=== PATIENT | female | born 1980 | race Caucasian/White ===

== ENCOUNTER 2023-11-29 08:59 | Day surgery (SDC) | payer OTHER, SELFPAY ==
--- NOTE | 2023-11-29 09:34 | PM.HP.1 ---
History of Present Illness History of Present Illness Date Patient Seen: 11/29/23 Chief complaint: Colonoscopy Narrative: Screening colonoscopy for colon cancer. In addition EGD for evaluation of GE reflux. [facility] Medical History (Updated 11/29/23 @ 09:33 by Lisa Staples, RN) DM (diabetes mellitus), type 2 GERD (gastroesophageal reflux disease) Surgical History (Updated 11/29/23 @ 09:33 by Lisa Staples RN) Delivery by section History of appendectomy Meds Home Medications and Allergies Home Medications Medication Instructions Recorded Confirmed Type ppspigp-xpnxmdfjvkcbs-ikahrvxw 250 1 tab PO ##0 08/27/16 History mg-250 mg-65 mg tablet (Excedrin Migraine) esomeprazole magnesium 20 mg 20 mg PO ##0 08/27/16 History capsule,delayed release (Nexium) ibuprofen 600 mg tablet ##0 08/27/16 History dulaglutide 0.75 mg/0.5 mL 0.75 mg SUBCUT WEEKLY 11/29/23 11/29/23 History subcutaneous pen injector (Trulicity) Allergies Allergy/AdvReac Type Severity Reaction Status Date / Time Sulfa (Sulfonamide Allergy Intermediate Unverified 08/30/17 12:43 Antibiotics) [SULFA (SULFONAMIDE ANTIBIOTICS)] Exam Narrative Exam Narrative: Oropharynx free of lesions Chest clear to auscultation percussion Cardiac exam reveals no S3 or murmur Assessment & Plan Assessment & Plan narrative: Need for colonoscopy for colon cancer screening and EGD for significant GE reflux. Risks, benefits, and alternatives have been explained Time-Based Coding :: [TOTAL MINUTES] spent with patient and on the chart (including review of chart, obtaining history, exam, reviewing outside data, placing orders, documenting exam and treatment plan, and counseling patient) on [DATE].
--- NOTE | 2023-11-29 09:36 | PM.OP.EC ---
Operative Date/Time/Diagnoses Date of procedure: 11/29/23 Pre-op diagnosis: See indication and findings Procedure & Clinicians Study performed: EGD and colonoscopy Indications: Colon cancer screening and evaluation of GE reflux Surgeon: Sidney Jaffe Procedure Notes Procedure in detail: After informed consent was obtained the patient was placed in left lateral decubitus position. The video upper scope was introduced the into the oropharynx and with the patient's help swallowed into the esophagus. The esophagus stomach and duodenum were carefully examined. On withdrawal, retroflexed view the GE junction was performed. The scope was removed. The patient tolerated procedure well. The patient was then turned and the colonoscope substituted. This was introduced in the rectum slowly advanced to the cecum. Preparation was good. On slow withdrawal mucosa was carefully examined. The scope was removed. The patient tolerated procedure well. Blood loss none Complications none Sedation mac Findings EGD 1. Normal esophagus though with a wide open GE junction particularly seen on retroflexed view 2. Normal stomach 3. Normal duodenal bulb and sweep Colonoscopy 1. Normal colonoscopy to cecum Patient will need follow-up colonoscopy in 10 years.
[2023-11-29 09:52] VITALS: BP 153/103; PULSE 81; RESP 18; TEMP 36.4; O2SAT 94
[2023-11-29] MEDS: LACTATED RINGERS 1,000 ML 42 ML IV (09:56)
[2023-11-29 10:40] VITALS: BP 123/75; PULSE 81; RESP 22; TEMP 37.2; O2SAT 94
[2023-11-29 10:45] VITALS: BP 114/75; PULSE 77; RESP 20; TEMP 37.1; O2SAT 95
[2023-11-29 10:50] VITALS: BP 122/82; PULSE 80; RESP 20; TEMP 37.1; O2SAT 95
[2023-11-29 10:55] VITALS: BP 121/67; PULSE 77; RESP 20; TEMP 37.1; O2SAT 96
== END 2023-11-29 11:03 | disposition home or self-care (01) ==
PROVIDERS: Referring Provider Internal Medicine Gastroenterology; Visit Provider Internal Medicine Gastroenterology
PROC: 0DJ08ZZ Inspection of Upper Intestinal Tract, Via Natural or Artificial Opening Endoscopic (ICD-10-PCS; CPT 43235; principal; 2023-11-29 10:00)
PROC: 0DJD8ZZ Inspection of Lower Intestinal Tract, Via Natural or Artificial Opening Endoscopic (ICD-10-PCS; CPT 45378; 2023-11-29 10:00)
DX: Z12.11 Encounter for screening for malignant neoplasm of colon (principal); K21.9 Gastro-esophageal reflux disease without esophagitis
CPT/HCPCS: 45378; 43235; J2704

== ENCOUNTER 2023-12-20 10:51 | Day surgery (SDC) | payer OTHER, SELFPAY ==
[2023-12-14 15:10] VITALS: BMI 45.8
[2023-12-20] VITALS (7 sets, daily range): BP systolic 142–157; BP diastolic 87–96; PULSE 61–75; RESP 12–20; TEMP 36.4–37.1; O2SAT 95–98; BMI 44.4
--- NOTE | 2023-12-20 | PATH_ITS ---
[facility] Accession Number: [id number] No. of containers..01 Tissue . 01 Material submitted: . gallbladder - GALLBLADDER AND CONTENTS . 01 Diagnosis: GALLBLADDER AND CONTENTS, CHOLECYSTECTOMY: Cholelithiasis with mild chronic cholecystitis. One benign cystic duct lymph node. No evidence of neoplasm. [facility] 12/22/2023 1116 Local . 01 Electronically signed: . Josef Perkins MD, PhD, Pathologist NPI- [id number] . 01 Gross description: . Received in formalin with two identifiers and gallbladder and contents, is an intact gallbladder 7.4 x 3.0 x 2.9 cm. The external surface is unremarkable. The cystic duct margin is inked blue, and a pericystic lympho node candidate measures 0.7 cm in greatest dimension. The lumen contains multiple yellow boselated calculi measuring up to 1.7 cm in greatest dimension admixed with dark green mucoid bile. The mucosa is green and velvety with no yellow discoloration, polyps, or lesions identified. The ellis average 0.3 cm thick and enrollment eligibility representative sections to include the cystic duct margin, intact lymph node candidate and full thickness sections are submitted in cassette A1. ([id number]) /JAQUI 12/21/2023 1127 Local . 01 Pathologist provided ICD-10: K80.60, K81.1 . 01 CPT . 212810 Specimen Comment: A courtesy copy of this report has been sent to [phone] Performed at: [address] [facility] [address], [place], [place] [id number] MD Anibal Roy MD Phone: [phone]
[2023-12-20] MEDS: ACETAMINOPHEN 325 MG TABLET 975 MG PO (11:09)
[2023-12-20] MEDS: LACTATED RINGERS 1,000 ML 42 ML IV (11:09)
--- NOTE | 2023-12-20 11:20 | PM.PREOP ---
Pre-operative Note COVID-19 COVID-19 status: Not tested Interval Note History & Physical reviewed/Exam performed by Physician: Yes Changes to H&P: No ASA Class (for procedural sedation): II
[2023-12-20] MEDS: CEFAZOLIN 2 GM/100 ML PREMIX 100 ML IV (12:46)
--- NOTE | 2023-12-20 12:58 | SUR.OPER ---
Supine on padded OR bed, head on pillow, safety belt at thigh, left arm padded and tucked at side. Right arm secured on padded arm board <90 degrees abduction. Legs uncrossed. Padded footboard in place. Tape over blanket to secure lower legs.
[2023-12-20] MEDS: BUPIVACAINE 0.5% (PF) 30 ML, EPINEPHrine 0.15 MG INJ (13:03)
--- NOTE | 2023-12-20 13:30 | PM.OP.1 ---
Operative Date/Time/Diagnoses Date of procedure: 12/20/23 Time of procedure: 13:30 Pre-op diagnosis: Symptomatic cholelithiasis Post-op diagnosis: same Procedure & Clinicians Procedure: Laparoscopic cholecystectomy Same procedure as scheduled: Yes Surgeon: Vivek Daugherty Pinball Machine Repairer: Pritesh Lehman Anesthesia Type: General Operative Notes Procedure in detail: The patient was given preoperative antibiotics. The patient was brought to the operating room and placed on the table in the supine position. General endotracheal anesthesia was induced. The abdomen was prepped and draped. A time-out was performed. We made a 1 cm infraumbilical incision. We dissected down to the base of the umbilical stalk using cautery. We grasped the umbilical stalk with a Tai clamp to elevate the abdominal wall. We scored the fascia in the midline with cautery. We pierced the peritoneum with a Peon clamp. The Carrol port was placed and the abdomen was insufflated to 15 mmHg. A 5 mm 30 degree laparoscopic was inserted. There was no evidence of any injury from the entry. Next, we placed 5 mm ports in the subxiphoid position and right upper quadrant at the midclavicular line and anterior axillary line. The patient was then positioned in reverse Trendelenburg and the table was tilted to the left. The gallbladder was grasped at the dome and retracted cephalad. We then dissected the cystic structures with a combination of hook cautery and blunt dissection. We obtained a critical view. We placed clips on the cystic duct and artery and divided the cystic duct and artery sharply between the clips. The gallbladder was then dissected off the liver and placed in a specimen retrieval bag. We irrigated the right upper quadrant and all the aspirate returned clear. We then removed the 5 mm ports under direct vision we removed the Carrol port. We then injected some local into the fascia and closed the fascia with 2 interrupted 0 Vicryl sutures. The skin incisions were closed with 4-0 Monocryl and Steri-Strips were applied. Band-Aids were applied over the Steri-Strips. EBL: 10 mL Specimen: Gallbladder and contents Pritesh YU provided assistance with exposure, retraction and closure of incisions. Post-operative Condition: stable Disposition: PACU
== END 2023-12-20 14:47 | disposition home or self-care (01) ==
PROVIDERS: PCP Nurse Practitioner Family; Referring Provider Surgery; Visit Provider Surgery
PROC: 0FT44ZZ Resection of Gallbladder, Percutaneous Endoscopic Approach (ICD-10-PCS; CPT 47562; principal; 2023-12-20 12:30)
DX: K80.10 Calculus of gallbladder with chronic cholecystitis without obstruction (principal)
CPT/HCPCS: 47562; 81025; 82962; J0171; J0330; J0690; J1885; J2250; J2405; J2704; J3010; J3490